=== PATIENT | female | born 1985 | race Caucasian/White ===

== ENCOUNTER → 2025-02-19 14:55 | Outpatient (REF) | payer BC, SELFPAY | LOC: WDC 14:55 | PROVIDERS: ATTENDING PHYSICIAN Obstetrics & Gynecology | DX: Z12.31 Encounter for screening mammogram for malignant neoplasm of breast (principal) | CPT/HCPCS: 77063; 77067 ==

== ENCOUNTER → 2025-03-03 10:08 | Outpatient (REF) | payer BC, SELFPAY | LOC: WDC 10:08 | PROVIDERS: ATTENDING PHYSICIAN Obstetrics & Gynecology | DX: R92.8 Other abnormal and inconclusive findings on diagnostic imaging of breast (principal) | CPT/HCPCS: 76642 ==

== ENCOUNTER 2025-08-03 21:23 | Observation (INO) | payer BC, SELFPAY ==
[2025-08-03 13:37] VITALS: BP 140/83
--- NOTE | 2025-08-03 14:27 | ED.GENMED ---
History of Present Illness
<Miya Azar NP - Last Filed: 08/03/25 21:01>
General
Chief Complaint: Abdominal Pain
Source: patient
Exam Limitations: none
Time Seen by Provider: 08/03/25 14:22
Nursing documentation reviewed up to this point in time: agreed with
History of Present Illness
History of Present Illness:
Patient to ED with complaint of severe upper abdominal pain. Came on suddenly while at park with daughter. +nausea, no vomiting or diarrhea. Reports pain, numbness and tingling to left arm. States pain was constant initially but has started to
subside. States pain now comes in waves. SHe had a similar event last week but reports symptoms resolved quickly. No further issues until today. LMP 1 week ago, normal. Last BM this AM, loose. Denies fever/chills
Past History
<Miya Azar LINUX UNIX ADMINISTRATOR - Last Filed: 08/03/25 21:01>
Past History
ED Past Medical History: None
ED Past Surgical History:
Review of Systems
<Miya Azar LINUX UNIX ADMINISTRATOR - Last Filed: 08/03/25 21:01>
Review of Systems
Allergies reviewed?: Yes
All Other Systems: ROS reviewed and negative except as documented in HPI and ROS
Constitutional: Reports no symptoms
EENT: Reports no symptoms
Respiratory: Reports no symptoms
Cardiac: Reports no symptoms
ABD/GI: Reports abdominal pain (upper abd. pain)
: Reports no symptoms
Musculoskeletal: Reports no symptoms
Skin: Reports no symptoms
Neurological: Reports no symptoms
Psychiatric: Reports no symptoms
Phy Exam
<Miya Azar LINUX UNIX ADMINISTRATOR - Last Filed: 08/03/25 21:01>
General Physical Exam
General Presentation: well appearing and mild distress
General age: appears stated age
General Skin: warm and dry
General Habitus: normal
Cardiovascular Exam
Cardiovascular Exam: regular rate/rhythm and no edema
Gastrointestinal Exam
Gastrointestinal Exam: normal bowel sounds, soft, no organomegaly, no pulsatile mass and non distended
Palpation: left upper quadrant: Mild tenderness, left lower quadrant: No tenderness, right upper quadrant: Mild tenderness and right lower quadrant: No tenderness
Musculoskeletal Exam
Musculoskeletal Exam: full ROM and neuro vasc intact
Skin Exam
Skin Exam: normal color, warm/dry and no rash
Psychiatric Exam
Psychiatric Exam: normal mood/affect
Course
<Miya Azar NP - Last Filed: 08/03/25 21:01>
Orders/Labs/Results
Orders:
Orders
08/03/25 13:39
EKG [Electrocardiogram (*1)] Urgent
Reason for Study: Abdominal Pain
EKG- Treatment ONCE
08/03/25 14:26
Urinalysis Reflex To Culture Urgent
Test Result ONCE
US Abdomen Complete/Upper Urgent
Comment:
Reason For Exam: upper abd. pain
08/03/25 14:31
Complete Blood Count/With Diff Urgent
Comprehensive Metabolic Panel Urgent
HCG, Serum Qualitative Screen Urgent
Lipase Urgent
08/03/25 14:35
Troponin I Urgent
08/03/25 17:18
Piperacillin/Tazo 3.375 Gram [Zosyn] 3.375 gram in 50 ml IV NOW
08/03/25 17:30
0.9% Sodium Chloride 1000 ml [Nss] 1,000 ml IV 125 mls/hr
Abnormal Lab Results
08/03/25
14:31
Absolute Neuts (auto) 7.5 H 10^3/uL
(1.4-6.5)
Neutrophils % 77.1 H %
(42.2-75.2)
Lymphocytes % 16.2 L %
(20.5-51.1)
AST 153 H U/L
(14-36)
ALT 87 H U/L
(0-35)
08/03/25 14:31
08/03/25 14:31
Vital Signs
Initial and Last Documented VS:
Initial Vital Signs
Temp Pulse Resp BP Pulse Ox
98.6 F 80 17 140/83 99
08/03/25 13:37 08/03/25 13:37 08/03/25 13:37 08/03/25 13:37 08/03/25 13:37
Last Documented Vital Signs
Temp Pulse Resp BP Pulse Ox
98.6 F 66 16 111/61 97
08/03/25 13:37 08/03/25 19:55 08/03/25 19:55 08/03/25 19:55 08/03/25 19:55
<Shavon Goel MD - Last Filed: 08/03/25 17:53>
Orders/Labs/Results
Orders:
Orders
08/03/25 13:39
EKG [Electrocardiogram (*1)] Urgent
Reason for Study: Abdominal Pain
EKG- Treatment ONCE
08/03/25 14:26
Urinalysis Reflex To Culture Urgent
Test Result ONCE
US Abdomen Complete/Upper Urgent
Comment:
Reason For Exam: upper abd. pain
08/03/25 14:31
Complete Blood Count/With Diff Urgent
Comprehensive Metabolic Panel Urgent
HCG, Serum Qualitative Screen Urgent
Lipase Urgent
08/03/25 14:35
Troponin I Urgent
08/03/25 17:18
Piperacillin/Tazo 3.375 Gram [Zosyn] 3.375 gram in 50 ml IV NOW
08/03/25 17:30
0.9% Sodium Chloride 1000 ml [Nss] 1,000 ml IV 125 mls/hr
Abnormal Lab Results
08/03/25
14:31
Absolute Neuts (auto) 7.5 H 10^3/uL
(1.4-6.5)
Neutrophils % 77.1 H %
(42.2-75.2)
Lymphocytes % 16.2 L %
(20.5-51.1)
AST 153 H U/L
(14-36)
ALT 87 H U/L
(0-35)
08/03/25 14:31
08/03/25 14:31
Vital Signs
Initial and Last Documented VS:
Initial Vital Signs
Temp Pulse Resp BP Pulse Ox
98.6 F 80 17 140/83 99
08/03/25 13:37 08/03/25 13:37 08/03/25 13:37 08/03/25 13:37 08/03/25 13:37
Last Documented Vital Signs
Temp Pulse Resp BP Pulse Ox
98.6 F 66 16 111/61 97
08/03/25 13:37 08/03/25 19:55 08/03/25 19:55 08/03/25 19:55 08/03/25 19:55
<Miya Azar NP - Last Filed: 08/03/25 21:01>
*Radiology
Radiology exam reviewed: radiology read reviewed
*Pulse Oximetry
SaO2: 99
Oxygen Mode of Delivery: Room air
Patient hypoxic: no
*Critical Care Note
Total Time (30-74mins, 75-104mins- exclusive of procedures): Not Applicable
<Miya Azar NP - Last Filed: 08/03/25 21:01>
Update Note
Update Note:
Patient to ED with report of upper abdominal pain. VSS, she remains afebrile. WBC 9.7. AST 153, ALT 87, normal tbili. US report reviewed: gallstone with mild wall thickening. Dr. Allan consulted. WIll admit to his service. SHe is to remain
NPO. Patient and her mother updated and are agreeable to plan. I have offered her pain medication but she has declined at this time.
ED Attending Note
<Miya Azar NP - Last Filed: 08/03/25 21:01>
-
Portions of this chart may have been created with voice recognition software.� Occasional wrong word or��sound alike� substitutions may have occurred due to the inherent limitations of voice recognition software.
<Shavon Goel MD - Last Filed: 08/03/25 17:53>
ED Attending Note
Patient seen and examined by attending physician: Yes
I performed the substantive portion of visit, reviewed & personally made and approve the management plan that is documented in note by myself or HELENE.: Yes
ED Attending Note:
40-year-old female had an egg wrap with sausage in the morning and then a few hours later developed severe epigastric pain that continues. She did have associated left arm 'tingling' for about 30 to 40 minutes now fully resolved. She denies chest
pain, dyspnea, fever, chills, lower abdominal pain. On exam patient has very mild epigastric tenderness to palpation, declines pain medication at this time. Workup nonsuggestive cardiac etiology. Workup suggestive for a CC, patient will be
admitted, antibiotics, surgical consult. Not septic or toxic appearing.
Discharge Plan
Departure
Patient Disposition: Admit
Date of Disposition: 08/03/25
Time of Disposition: 17:17
Presentation/result/management discussed w/ accepting MD/DO: Dr. Allan
Patient with high blood pressure during this ER visit?: No
Condition: Fair
Covid-19: Not Applicable
Discharge Problem:
Acute cholecystitis
Prescriptions:
No Action
sertraline [Zoloft] 25 mg Tablet
25 mg PO DAILY
prenat.vits,candy,hcm-jeop-qbtdm Tablet
1 tab PO HS
ferrous sulfate [FeroSul] 325 mg (65 mg iron) Tablet
325 mg PO DAILY Qty: 0 0RF
acetaminophen 325 mg Tablet
650 mg PO Q4HPRN PRN (Reason: mild pain) Qty: 0 0RF
ibuprofen 600 mg Tablet
600 mg PO Q6HPRN PRN (Reason: cramps) Qty: 0 0RF
Referrals:
Alma Taylor CRNP [Family Provider, Family Practice]
Interventions
Interventions:
*Risk Screen - Suicide Last Done: 08/03/25 13:38
*General Assessment Last Done: 08/03/25 13:38
*Neglect/Abuse Screening Last Done: 08/03/25 13:38
*ED- Fall Risk Assessment Last Done: 08/03/25 14:17
*ED COVID-19 Vaccine History Last Done: 08/03/25 13:38
GY-Xrowqa-Zhgzgvjvkj Assessment Last Done: 08/03/25 14:17
Discharge Date and Time
Print Language: PERSIAN
[2025-08-03 14:42] LABS: Hematocrit 37.1 % (37.0-47.0); Hemoglobin 12.6 g/dL (12.0-16.0); Mean Corp Hgb Conc. 34.0 g/dL (33.0-37.0); Mean Corpuscular Volume 83.7 fL (81.0-99.0); Nucleated Red Blood Cells % 0 %; Platelet Count 287 10^3/uL (130-400); Red Cell Dist. Width 12.6 % (11.5-14.5)
[2025-08-03 14:50] LABS: HCG, Serum Qualitative Screen Negative
[2025-08-03 14:58] LABS: ALT (SGPT) 87 U/L (0-35); AST (SGOT) 153 U/L (14-36); Albumin 4.6 g/dl (3.5-5.0); Alkaline Phosphatase 66 U/L (38-126); Blood Urea Nitrogen 15 mg/dl (7-17); Calcium 9.4 mg/dl (8.4-10.2); Carbon Dioxide 27 mmol/L (22-30); Chloride 103 mmol/L (98-107); Glucose 99 mg/dl (70-99); Lipase 153 U/L (23-300); Potassium 4.0 mmol/L (3.5-5.1); Sodium 137 mmol/L (135-145); Total Protein 7.7 g/dl (6.3-8.2); eGFR > 60.00
[2025-08-03 15:08] LABS: Troponin I < 0.012 ng/ml
[2025-08-03 16:52] VITALS: BP 138/79
[2025-08-03] MEDS: ZOSYN 50 IV ×2 (17:26→23:30)
[2025-08-03] MEDS: NSS 1000 IV (17:26)
[2025-08-03 19:55] VITALS: BP 111/61
--- NOTE | 2025-08-03 21:46 | HPS.HSE ---
Addendum entered and electronically signed by Carter Mireles MD 08/04/25 11:05:
I saw and examined the patient independently.
The Carpenter Rough's note was reviewed and I agree with the note, assessment and plan except where noted below.
Comment: This is a 40-year-old female who presents with postprandial right upper quadrant/epigastric pain. Imaging, exam, blood work all consistent with biliary colic.
I offered the patient inpatient versus close outpatient follow-up for surgery. Patient has elected to do a trial of diet and make the decision following this but is leaning towards surgery tomorrow.
Okay for a low-fat diet, tentatively added on for the OR tomorrow. N.p.o. at midnight.
Stop antibiotics.
I spent 60 minutes in total for the care of this patient today including direct patient care and counseling, reviewing labs, imaging, coordination of care, as well as documentation.
Original Note:
Family Physician
-
Family Physician: Alma Taylor
Chief Complaint
-
abdominal pain
History of Present Illness
This is a pleasant 40 year old female who comes to the ED with transverse upper abdominal pain which started on Monday but only for a moment but returned today while she was playing with her daughter at the park. Also has some nausea but no
diarrhea or vomiting. The pain is intermittent building with intensity then slowly subsiding but now constant. PMH includes childbirth and wisdom teeth removal.
Medical History
Past Medical History
Past Medical History: Reports Psychiatric (depression)
Past Surgical History: Reports and Other (wisdom teeth)
Social History
Tobacco: Non-smoker
Alcohol: Occasional
Drug: None
Personal:
Living: With Family
Employment: Employed
Family History
Family History: Cancer (uncle with colon cancer) and Diabetes
Allergies / Home Medications
Allergies reflects when Allergies were last updated in [facility].
Home Medications with original date entered in [facility]
Allergy/Medication List:
Allergies
Allergy/AdvReac Type Severity Reaction Status Date / Time
No Known Allergies Allergy Unverified 08/03/25 13:37
Home Medications
prenat.vits,candy,pyg-vomg-dgdax 1 tab PO HS 10/01/22
sertraline 25 mg tablet (Zoloft) 25 mg PO DAILY 10/01/22
acetaminophen 325 mg tablet 650 mg (2 x 325 mg) PO Q4HPRN PRN mild pain #0 tabs 10/04/22
ferrous sulfate 325 mg (65 mg iron) tablet (FeroSul) 325 mg PO DAILY #0 tabs 10/04/22
ibuprofen 600 mg tablet 600 mg PO Q6HPRN PRN cramps #0 tabs 10/04/22
Review of Systems
-
History Source: Patient and Coordinated Provider
Constitutional: Reports Fatigue
EENT: Reports No Symptoms
Respiratory: Reports No Symptoms
Cardiac: Reports No Symptoms
Abdomen/GI: Reports Abdominal Pain and Nausea
: Reports No Symptoms
Musculoskeletal: Reports No Symptoms
Skin: Reports No Symptoms
Neurological: Reports No Symptoms
Endocrine: Reports No Symptoms
Hematologic/Lymphatic: Reports No Symptoms
Psych: Reports No Symptoms
Physical Exam
Vital Signs
Vital Signs
Temp Pulse Resp BP Pulse Ox
97.4 F 81 18 133/84 100
08/03/25 22:18 08/03/25 22:18 08/03/25 22:18 08/03/25 22:18 08/03/25 22:18
Physical Exam
General: Well Developed, Well Nourished and Conversant
HEENT: NormoCephalic, Moist mucous membranes and PERRLA
Respiratory: Clear and Non Labored Respirations
Cardiac: S1/S2 and Regular Rhythm
Breast: Deferred by me
GI: Soft, Tender and Distended
Rectal: Deferred by Provider
Genito-urinary: Clear Urine
Musculoskeletal: No Clubbing and No Cyanosis
Skin: Warm and Dry
Neuro: Awake, Alert, AO x 3, No Motor Deficits and Nonfocal/grossly intact
Hematologic/Lymphatic: No Lymphadenopathy
Laboratory Results
-
08/03/25 14:31
08/03/25 14:31
Laboratory Results
Total Bilirubin 1.2 mg/dl (0.2-1.3) 08/03/25 14:31
AST 153 U/L (14-36) H 08/03/25 14:31
ALT 87 U/L (0-35) H 08/03/25 14:31
Alkaline Phosphatase 66 U/L (38-126) 08/03/25 14:31
Troponin I < 0.012 ng/ml 08/03/25 14:35
Lipase 153 U/L (23-300) 08/03/25 14:31
Data Reviewed
-
Ultrasound: Report Reviewed by me
Lab Data: Labs Reviewed by me
Old Records: Reviewed
Impression/Plan
-
IMPRESSION: Acute cholecystitis
PLAN: This is a pleasant 40 year old female who comes to the ED with transverse upper abdominal pain which started on Monday but only for a moment but returned today while she was playing with her daughter at the park. Also has some nausea but no
diarrhea or vomiting. The pain is intermittent building with intensity then slowly subsiding but now constant. PMH includes childbirth and wisdom teeth removal.
*Acute cholecystitis: NPO, Zosyn IV, Morphine IV prn pain, Zofran IV prn pain.
*Depression: Resume Zoloft post op
*DVT prophylaxis: Teds, SCDs oob ambulate
*Disposition: [facility]/General surgery service
--- NOTE | 2025-08-03 22:15 | PTCARENOTE ---
Pt arrived from ED to 2S at 22:00 with dx of Cholecystitis. Pt had PMH of a . Pt NPO at midnight for probable surgery tomorrow. Pt AOx3, bed in a low position, denies pain at this time, call light in reach.
[2025-08-03 22:18] VITALS: BP 133/84
[2025-08-04] MEDS: NSS 1000 IV ×3 (01:20→22:28)
[2025-08-04] MEDS: ZOSYN 50 IV (05:02)
[2025-08-04 07:10] VITALS: BP 110/68
[2025-08-04 07:42] LABS: Urine Character Clear (Clear)
--- NOTE | 2025-08-04 09:29 | CM ---
CM following re: discharge planning.
Reviewed pt's chart, met with pt.
Pt is a 40 year old female, admitted with OBS status and primary dx of Abdominal pain, Acute Cholecystitis. OR tomorrow. OBS status reviewed with the pt, pt declined to sign, OBS letter placed on chart, pt has a copy.
Pt reports she lives with and 3 year old daughter 2SH, 1 step to enter. 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
PCP: Alma Taylor
Pharmacy: [facility]
D/C plan: home with anticipated no needs. to transport at discharge.
CM will follow with discharge plan updates as needed.
--- NOTE | 2025-08-04 11:08 | W.PN.GS2 ---
Addendum entered and electronically signed by Carter Mireles MD 08/04/25 13:14:
I saw and examined the patient independently.
The resident's documentation was reviewed and I agree with the note, assessment and plan except where noted below.
Comment: This is a 40-year-old female who presents with epigastric abdominal pain that has since resolved. Exam reassuring. Imaging and blood work consistent with biliary colic, though LFTs are slightly elevated.
Will plan for laparoscopic cholecystectomy in the OR tomorrow.
Okay for low-fat diet, n.p.o. at midnight.
IV antibiotics ordered.
Risks/Benefits/Alternatives, expected postoperative course and possible complications (bleeding, infection, injury to surrounding structures, acute/chronic pain) discussed at length. Patient wishes to proceed with surgery. All questions answered.
Consent obtained.
I spent 60 minutes in total for the care of this patient today including direct patient care and counseling, reviewing labs, imaging, coordination of care, as well as documentation.
Original Note:
Today's Communication / Plan
-
NPO after midnight
Assessment / Plan
-
40-year-old female with no significant past medical history and past surgical history of section �1 presents with epigastric pain. One day prior to admission, she experienced shooting, non-radiating epigastric pain that came in waves but
never fully subsided. The pain was associated with anorexia, vomiting, and left arm tingling. She denies fever, chills, diarrhea, or hematochezia. Her last bowel movement was yesterday morning, non-bloody and watery. She reports a similar episode of
epigastric pain over the weekend, which resolved spontaneously. Worsening and persistence of her symptoms prompted ED evaluation.
Abdominal US: Small gallstone in the gallbladder lumen. No pericholecystic fluid. The anterior gallbladder wall measures 4 mm in thickness. The sonographic Quintanilla's sign was reportedly negative.
AST and ALT elevated,
The patient currently denies abdominal pain and nausea. (+) flatus, BM: yesterday, (-) fever.
#Acute Cholecystitis
-Laparoscopic Cholecystectomy tomorrow
-NPO after midnight
-Pain management and antiemetics
-DVT prophylaxis
Subjective Data
-
Date of Service: August 04, 2025
The patient denies abdominal pain, nausea, vomiting, and fever. She is concerned about missing her work during the post-operative recovery period, but will work around it. She has decided to proceed with surgery today.
Objective Data
-
Intake and Output
08/03/25 08/04/25 08/05/25
06:59 06:59 06:59
Intake Total 240 / 240
Balance 240 / 240
Intake:
Oral fluids 240 / 240
Other:
Number of approximated MODERATE 2
amounts of urine
Number of approximated LARGE 1
amounts of urine
Vital Signs
Temp Pulse Resp BP Pulse Ox
97.9 F 62 16 110/68 98
08/04/25 07:10 08/04/25 07:10 08/04/25 07:10 08/04/25 07:10 08/04/25 07:10
Lab Results
08/03/25 14:31
08/03/25 14:31
Calcium 9.4 mg/dl (8.4-10.2) 08/03/25 14:31
Total Bilirubin 1.2 mg/dl (0.2-1.3) 08/03/25 14:31
AST 153 U/L (14-36) H 08/03/25 14:31
ALT 87 U/L (0-35) H 08/03/25 14:31
Alkaline Phosphatase 66 U/L (38-126) 08/03/25 14:31
Total Protein 7.7 g/dl (6.3-8.2) 08/03/25 14:31
Albumin 4.6 g/dl (3.5-5.0) 08/03/25 14:31
Physical Exam
-
General: NAD
Lungs: Non-labored breathing
Abdomen: NBS, soft, non-distended, non-tended
Msk: (-) edema
Patient has a drew catheter: No
Patient has a central line: No
[2025-08-04 15:10] VITALS: BP 122/81
[2025-08-04 23:03] VITALS: BP 99/66
[2025-08-05] VITALS (13 sets, daily range): BP systolic 110–129; BP diastolic 57–87
--- NOTE | 2025-08-05 06:19 | W.SUR.PREOP ---
Pre-Operative Surgical Note
-
I have examined this patient prior to the performance of the scheduled procedure.
The patient's condition is unchanged from the time of the current History and
Physical and the patient is able to undergo the scheduled procedure.
--- NOTE | 2025-08-05 09:07 | W.PN.GS2 ---
Today's Communication / Plan
-
For OR today
NPO
Assessment / Plan
-
40-year-old female with no significant past medical history and past surgical history of section �1 presents with epigastric pain. One day prior to admission, she experienced shooting, non-radiating epigastric pain that came in waves but
never fully subsided. The pain was associated with anorexia, vomiting, and left arm tingling. She denies fever, chills, diarrhea, or hematochezia. Her last bowel movement was yesterday morning, non-bloody and watery. She reports a similar episode of
epigastric pain over the weekend, which resolved spontaneously. Worsening and persistence of her symptoms prompted ED evaluation.
Abdominal US: Small gallstone in the gallbladder lumen. No pericholecystic fluid. The anterior gallbladder wall measures 4 mm in thickness. The sonographic Quintanilla's sign was reportedly negative.
AST and ALT elevated,
The patient reports 2 episodes of non-bloody diarrhea since yesterday night. She denies abdominal pain, fever, nausea, and vomiting. WBC 9.7
#Acute Cholecystitis
-Laparoscopic Cholecystectomy today
-NPO
-Pain management and antiemetics
-DVT prophylaxis
Subjective Data
-
Date of Service: August 05, 2025
She reports 2x non-bloody diarrhea since yesterday. She denies abdominal pain, nausea, vomiting, and fever
Objective Data
-
Intake and Output
08/04/25 08/05/25 08/06/25
06:59 06:59 06:59
Intake Total 240 / 240 3375 / 3375
Balance 240 / 240 3375 / 337
Intake:
Oral fluids 240 / 240 1999 / 1999
IV fluids (Total) 1375 / 1375
Other:
How many times incontinent 2
MODERATE amount urine
Number of approximated MODERATE 2 2
amounts of urine
Number of approximated LARGE 1
amounts of urine
Vital Signs
Temp Pulse Resp BP Pulse Ox
98.0 F 67 18 110/71 100
08/05/25 07:25 08/05/25 07:25 08/05/25 07:25 08/05/25 07:25 08/05/25 07:25
Lab Results
08/03/25 14:31
08/03/25 14:31
Calcium 9.4 mg/dl (8.4-10.2) 08/03/25 14:31
Total Bilirubin 1.2 mg/dl (0.2-1.3) 08/03/25 14:31
AST 153 U/L (14-36) H 08/03/25 14:31
ALT 87 U/L (0-35) H 08/03/25 14:31
Alkaline Phosphatase 66 U/L (38-126) 08/03/25 14:31
Total Protein 7.7 g/dl (6.3-8.2) 08/03/25 14:31
Albumin 4.6 g/dl (3.5-5.0) 08/03/25 14:31
Physical Exam
-
General: NAD
Lungs: Non-labored breathing
Abdomen: NBS, soft, non-tender, non-distended
Ext: (-) edema
Patient has a drew catheter: No
Patient has a central line: No
--- NOTE | 2025-08-05 12:44 | CM ---
CM following re: discharge planning.
Reviewed pt's chart, met with pt.
Per Surgery, OR today for Laparoscopic Cholecystectomy
Pt lives with and 3 year old daughter 2SH, 1 step to enter. 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
D/C plan: home with anticipated no needs. to transport at discharge.
CM will follow with discharge plan updates as needed.
--- NOTE | 2025-08-05 13:40 | W.IMMPOSTOP ---
Surgical Immed Post Op Note
-
Primary Surgeon: Carter Mireles MD
Assisting Surgeon: None
Pre-op Diagnosis: Biliary colic
Post-op Diagnosis: Same
Procedure Performed: Laparoscopic cholecystectomy with cholangiogram
Anesthesia Type: General
Specimen / Cultures: Gallbladder and contents
Estimated Blood Loss: 3 cc
Complications: None
Operative Findings: Mildly dilated but otherwise fairly normal-appearing gallbladder. Critical view of safety obtained prior to cholangiogram which demonstrated normal biliary anatomy, no appreciable filling defects but sluggish flow of contrast
into the duodenum, this improved after administration of 1 mg of glucagon and allowing 1 minute for this to take effect. Brisker flow of contrast was noted on the final cholangiogram.
POST OP PLAN:
Imaging: None
Labs: Routine AM
Diet: Advance to Regular as tolerated
Analgesia: Tylenol 650mg q6 Giana, Dilaudid 0.5mg q2h PRN
Neuro/vascular checks: Per unit protocol
AC/AP: Hold Therapeutic AC, Ok for DVT PPx
Activity: Ad Roseann
Wound/Incisions/Drains: Routine
Abx: Will stop antibiotics.
Dispo: [RNF, potential DC home today.
--- NOTE | 2025-08-05 13:42 | OR.RPT ---
Operative Report
Operative Report
Patient Name: Carmela Brunner
: 1985
Date of Operation: 08/05/2025
Preoperative Diagnosis: Biliary colic
Postoperative Diagnosis: Same
Procedure(s):
Laparoscopic Cholecystectomy with Cholangiogram
Surgeon(s):
Dr. Mireles
Fiberglass Bonding Machine Tender(s):
LUCIO Calloway
Anesthesia: General
Estimated Blood Loss: 3 cc
Urine Output: None
Drains/Lines/Implants: None
Specimens:
1. Gallbladder and contents
HPI/Surgical Indications:
This is a 40-year-old female who presents with 1 day of postprandial right upper quadrant abdominal pain. Exam, labs and imaging are consistent with biliary colic. Risks/Benefits/Alternatives were discussed at length, and the patient agreed to
proceed with surgery.
Operative Findings: Mildly dilated but otherwise fairly normal-appearing gallbladder. Critical view of safety obtained prior to cholangiogram which demonstrated normal biliary anatomy, no appreciable filling defects but sluggish flow of contrast
into the duodenum, this improved after administration of 1 mg of glucagon and allowing 1 minute for this to take effect. Brisker flow of contrast was noted on the final cholangiogram.
Procedure Description:
The patient was brought to the Operating Room and placed in the supine position with one arm tucked. Following uneventful induction of general endotracheal anesthesia, an orogastric tube was placed. The abdomen was prepped and draped in the usual
sterile fashion. A timeout was performed confirming the procedure, consent, and that IV antibiotics were infused and sequential compression devices were confirmed to be on. The abdomen was entered using a left subcostal Veress technique which
required a single pass followed by a 5 mm right upper quadrant Optiview trocar. Pneumoperitoneum to 15 mmHg pressure was obtained without difficulty and we confirmed that no injury had occurred during our entry. The patient was positioned in
reverse Trendelenberg and rotated with the right side up slightly. Two 5 mm trocars were then placed along the right subcostal margin, followed by a 12 mm port in the epigastrium. The gallbladder appeared distended but otherwise fairly normal. A
locking grasping forceps was placed on the fundus of the gallbladder where it was then retracted cephalad and to the right. Using appropriate grasping instruments, the peritoneum overlying the triangle of Calot was incised and extended superiorly on
both the anterior and posterior gallbladder jean. The infundibulum was dissected off the cystic plate. The cystic triangle was dissected until a critical view of safety was achieved. The cystic artery was medialized, dissected and controlled with
2 proximal clips and 1 distal. The cystic duct/gallbladder junction in turn was identified, dissected circumferentially and a clip was placed. A ductotomy was made and a cholangiocatheter on an Slade clamp was inserted into the cystic duct. A C-arm
was draped and brought into the field. An intra-operative cholangiogram was performed and was noted to have:
No filling defects in the biliary tree
No significant biliary dilation
Normal biliary anatomy
Initially there was poor flow contrast into the duodenum so 1 mg of glucagon was given and and time was given for this to take effect. Repeat cholangiogram demonstrated improved flow into the duodenum again with no obvious filling defect.
The catheter was then removed and the cystic duct was controlled with a clip followed by 0 PDS Endoloop. After ensuring both the artery and duct were divided, the gallbladder was freed from the liver using electrocautery. There was some spillage
of bile from our ductotomy, but no spillage of stones. The gallbladder bed was inspected and excellent hemostasis was obtained. The gallbladder was extracted through the 12 mm trocar site using an endocatch bag. The abdomen was again irrigated and
excellent hemostasis was assured. All remaining trocars were then removed and the pneumoperitoneum was evacuated. The 12 mm trocar site was closed using 0 PDS suture. All trocar sites were closed at the skin level using 4-0 Monocryl followed by
Dermabond. Overall, the patient tolerated the procedure well and was taken to the Recovery Room postoperatively in stable condition.
Halima was the attending physician and performed the procedure with assistance of the PA above. The assistance of LUCIO Calloway was required due to the complexity of the procedure. During the procedure Alma assisted with port placement, tissue
retraction, resection, and closure of the wound. I was present for all portions of the case, excluding skin closure.
Carter Mireles MD
[2025-08-05] MEDS: DILAUDID 0.25 MG IV (13:53)
[2025-08-05] MEDS: ZOFRAN 4 MG IV (14:07)
--- NOTE | 2025-08-05 15:22 | PTCARENOTE ---
Pt returned back to [facility] s/p lap carlyle. 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 Pt drowsy but arouses to verbal. 98% on RA. Bed locked & in lowest position. Care ongoing.
[2025-08-05] MEDS: TYLENOL 650 MG PO (23:37)
[2025-08-06 03:00] VITALS: BP 116/76
[2025-08-06] MEDS: TYLENOL 650 MG PO (06:42)
[2025-08-06 07:50] VITALS: BP 118/73
--- NOTE | 2025-08-06 09:11 | W.PN.GS2 ---
Today's Communication / Plan
-
Dispo planning
Assessment / Plan
-
This is a 40-year-old female postoperative day 1 from a laparoscopic cholecystectomy for biliary colic. Doing well, expected postoperative course.
Will DC home today.
Time Spent
Total Time Spent with Patient (in minutes): 10
Subjective Data
-
Date of Service: August 06, 2025
Interval Events:
No acute events overnight. Slept well. Pain Controlled. Denies Nausea/Vomiting, +bowel function. Tolerating diet.
Objective Data
-
Intake and Output
08/05/25 08/06/25 08/07/25
06:59 06:59 06:59
Intake Total 3375 / 3375 820 / 820
Balance 3375 / 3375 820 / 820
Intake:
Oral fluids 2000 / 2000 720 / 720
IV fluids (Total) 1375 / 1375 100 / 100
normosol 100 / 100
Other:
How many times incontinent 2 1
MODERATE amount urine
Number of approximated MODERATE 2 1
amounts of urine
Number of approximated LARGE 1
amounts of urine
Vital Signs
Temp Pulse Resp BP Pulse Ox
98.3 F 66 16 118/73 98
08/06/25 07:50 08/06/25 07:50 08/06/25 07:50 08/06/25 07:50 08/06/25 07:50
Lab Results
08/03/25 14:31
08/03/25 14:31
Calcium 9.4 mg/dl (8.4-10.2) 08/03/25 14:31
Total Bilirubin 1.2 mg/dl (0.2-1.3) 08/03/25 14:31
AST 153 U/L (14-36) H 08/03/25 14:31
ALT 87 U/L (0-35) H 08/03/25 14:31
Alkaline Phosphatase 66 U/L (38-126) 08/03/25 14:31
Total Protein 7.7 g/dl (6.3-8.2) 08/03/25 14:31
Albumin 4.6 g/dl (3.5-5.0) 08/03/25 14:31
Physical Exam
-
GENERAL/NEURO: Awake, Alert, no distress
CHEST: Unlabored breathing on RA
ABDOMEN: Soft, Non-Tender, Non-Distended, incisions clean dry and intact.
Patient has a drew catheter: No
Patient has a central line: No
[2025-08-06 11:15] VITALS: BP 133/75
== END 2025-08-06 11:52 | disposition home or self-care (01) ==
LOC: 2 SOUTH 21:23
PROVIDERS: Nurse Practitioner; ADMITTING PHYSICIAN Surgery; EMERGENCY PHYSICIAN Emergency Medicine; FAMILY PHYSICIAN Nurse Practitioner Family
DX: K80.62 Calculus of gallbladder and bile duct with acute cholecystitis without obstruction (principal); R10.9 Unspecified abdominal pain; R11.0 Nausea; M79.602 Pain in left arm; R20.0 Anesthesia of skin; R20.2 Paresthesia of skin; R10.13 Epigastric pain; F32.A Depression, unspecified; R74.8 Abnormal levels of other serum enzymes; R19.7 Diarrhea, unspecified; Z83.3 Family history of diabetes mellitus; Z80.0 Family history of malignant neoplasm of digestive organs; Z98.891 History of uterine scar from previous surgery
CPT/HCPCS: 47563; 74300; 76000; 76700; 80053; 81003; 83690; 84484; 84703; 85025; 88304; 93005; 96374; 99285; A4300; G0378; J1610